=== PATIENT | male | born 1950 | race Caucasian/White ===

== ENCOUNTER 2023-03-20 07:49 | Outpatient (CLI) | payer MEDICARE, SELFPAY | END 2023-03-20 07:50 | disposition home or self-care (01) | PROVIDERS: PCP Family Medicine; Visit Provider Family Medicine | DX: M54.16 Radiculopathy, lumbar region (principal); M51.36 Other intervertebral disc degeneration, lumbar region | CPT/HCPCS: 62323; J0702; Q9966 ==